=== PATIENT | female | born 1940 | race Caucasian/White ===

== ENCOUNTER 2019-07-24 14:16 | Emergency (ER) | payer MEDICARE, BC ==
[~2019-07-24] VITALS: Ht 165.1 cm; Wt 68.0 kg
--- NOTE | 2019-07-24 14:45 | NUR ---
bib ra c/o r knee pain s/p GLF. Denies LOC, neck, or back pain. on room air, breathing evenly and unlabored. connected to the monitor and puls eox. kept comfortable, will continue to monitor accordingly.
--- NOTE | 2019-07-24 15:12 | NUR ---
denise at bedside for x-ray
[2019-07-24 16:01] VITALS: BP 128/71
--- NOTE | 2019-07-24 16:02 | NUR ---
Patient discharged to home in stable condition. Written and verbal after care instructions given. Patient verbalizes understanding of instruction.
== END 2019-07-24 16:01 | disposition home or self-care (01) ==
LOC: ER 14:25
DX: S80.01XA Contusion of right knee, initial encounter (principal); I10 Essential (primary) hypertension; M19.90 Unspecified osteoarthritis, unspecified site; Z96.643 Presence of artificial hip joint, bilateral; Z91.048 Other nonmedicinal substance allergy status; W18.39XA Other fall on same level, initial encounter; Y93.89 Activity, other specified; Y92.89 Other specified places as the place of occurrence of the external cause; Y99.8 Other external cause status
CPT/HCPCS: 73564-TC